=== PATIENT | female | born 1995 | race Two or more races ===

== ENCOUNTER 2020-03-15 10:51 | Outpatient (CLI) | payer OTHER | END 2020-03-15 11:57 | disposition home or self-care (01) | LOC: SONOGRAMA 10:51 | PROVIDERS: ATTEND Pediatrics Pediatric Endocrinology | DX: E04.1 Nontoxic single thyroid nodule (principal); R10.2 Pelvic and perineal pain ==

== ENCOUNTER 2022-06-18 07:25 | Outpatient (CLI) | payer OTHER | END 2022-06-18 15:03 | disposition home or self-care (01) | LOC: RAD 07:25 | PROVIDERS: ATTEND General Practice | DX: R51.0 Headache with orthostatic component, not elsewhere classified (principal) ==

== ENCOUNTER 2022-09-05 12:13 | Outpatient (CLI) | payer OTHER | END 2022-09-05 12:15 | disposition home or self-care (01) | LOC: TOM 12:13 | DX: J32.4 Chronic pansinusitis (principal) ==

== ENCOUNTER 2023-04-09 10:42 | Outpatient (CLI) | payer OTHER | END 2023-04-09 11:01 | disposition home or self-care (01) | LOC: MRI 10:42 | PROVIDERS: ATTEND Psychiatry & Neurology Neurology | DX: G44.219 Episodic tension-type headache, not intractable (principal) | CPT/HCPCS: 70551 ==

== ENCOUNTER 2024-01-06 10:22 | Outpatient (CLI) | payer OTHER | END 2024-01-06 10:30 | disposition home or self-care (01) | LOC: TOM 10:22 | PROVIDERS: ATTEND Radiology Diagnostic Radiology | DX: K43.9 Ventral hernia without obstruction or gangrene (principal) ==

== ENCOUNTER 2024-01-31 10:29 | Outpatient (CLI) | payer OTHER | END 2024-01-31 11:00 | disposition home or self-care (01) | LOC: SONOGRAMA 10:29 | PROVIDERS: ATTEND Radiology Diagnostic Radiology | DX: K45.8 Other specified abdominal hernia without obstruction or gangrene (principal) ==

== ENCOUNTER → 2025-04-15 | Outpatient (CLI) | payer OTHER | END | disposition home or self-care (01) | LOC: TOM 09:15 | DX: K43.9 Ventral hernia without obstruction or gangrene (principal) ==